=== PATIENT | female | born 1980 | race Two or more races ===

== ENCOUNTER 2017-11-07 13:54 | Emergency (ER) | payer MEDICARE ==
[~2017-11-07] VITALS: Ht 162.6 cm; Wt 85.3 kg
[2017-11-07 16:43] VITALS: BP 137/85
[2017-11-07] MEDS ORDERED: IOPAMIDOL 370 MG/ML 50ML INFUS..BTL INJ ONE (17:15)
== END 2017-11-07 16:59 | disposition home or self-care (01) ==
LOC: FSED 13:54
DX: O90.89 Other complications of the puerperium, not elsewhere classified (principal); R07.89 Other chest pain; O90.81 Anemia of the puerperium; D64.9 Anemia, unspecified; K75.9 Inflammatory liver disease, unspecified
CPT/HCPCS: 71275; 80053; 83880; 84484; 85025; 85379; 93005; 99284; Q9967